=== PATIENT | male | born 1960 | race Caucasian/White ===

== ENCOUNTER 2016-04-27 13:28 | Emergency (ER) | payer OTHER ==
[~2016-04-27 13:28] MED LIST: ASPIRIN81 M1 PO; BACTRIM DS TABL1 TA1 PO; CIPRO PO; DAKIN'S3840 ML TOP; DILAUDID PO; FLEXERIL10 MG PO; KEFLEX PO; KEFLEX500 MG PO; LEVAQUIN PO; LORTAB 5/500 TA1 TA2 PO; METHADONE PO; ORUDIS75 M1 PO; VIBRAMYCIN100 M1 PO; VICODIN 5/1 TAB 5/50 PO; ZYVOX PO
== END 2016-04-27 14:41 | disposition home or self-care (01) ==
LOC: CED 13:28
DX: T40.1X1A Poisoning by heroin, accidental (unintentional), initial encounter (principal); I10 Essential (primary) hypertension; B19.20 Unspecified viral hepatitis C without hepatic coma; C34.90 Malignant neoplasm of unspecified part of unspecified bronchus or lung; F17.210 Nicotine dependence, cigarettes, uncomplicated
CPT/HCPCS: 99282